=== PATIENT | female | born 1980 | race Caucasian/White ===

== ENCOUNTER → 2023-04-04 | Outpatient (CLI) | payer BC ==
[~2023-04-04] MED LIST: AMOXICILLIN 50500 MG PO; Iohexol 300 - 100 ML VIAL IV ONE; MOTRIN 600600 MG/TAB PO; NO HOME MEDICATIONS; NS 100 ML IV SCH; PERCOCET 325 MG1 TA2 PO
== END ==
LOC: COL.RAD 09:50
DX: R10.31 Right lower quadrant pain (principal)
CPT/HCPCS: Q9967